=== PATIENT | female | born 1990 | race African-American/Black ===

== ENCOUNTER 2017-02-16 10:05 | Emergency (ER) | payer OTHER ==
--- NOTE | ~2017-02-16 | US61 ---
[facility] A Service of [facility] RADIOLOGY TEXT RESULTS PATIENT: ERNESTO PETERS LOCATION: [facility] : [birth year] UNIT #: [id number] AGE: [address]: Gladys Ramírez SEX: F ORDER DR: [id number] [facility] [address] [place], [place] [address] [id number] MR#: [id number] Acc #: [id number] NAME: ERNESTO PETERS : 1990 SEX: F STUDY DATE/TIME: 02/16/2017 10:53 UNIT: [facility] ROOM: STUDY DESCRIPTION: US /Mat <14Wk Attending Physician: Rizwan Frias M.D. Ordering Physician: Alexander Valente M.D. Primary Care Physician: No Primary Care Physician MEDICAL IMAGING REPORT This report is preliminary unless electronic signature is present EXAM Early ultrasound. HISTORY Early with cramping for 1 day. COMPARISON 06/25/2015 FINDINGS Transabdominal followed by transvaginal imaging was performed. Right and left ovaries are visualized and they appear normal and have normal flow and measure 3.4-4.0 cm. There is an intrauterine gestational sac. There is yolk sac and a pole and the pole is 1.79 cm with an estimated gestational age of 8 weeks and 2 days. The gestational sac appears normal. There is no evidence of bleeding. The heart rate is 168 beats per minute. The uterus otherwise appears normal. IMPRESSION 8 week 2 day intrauterine with a heart rate of 168 beats per minute. The study appears otherwise normal. Dictated by... Gumaro Parsons M.D. THIS IS AN ELECTRONICALLY VERIFIED REPORT Gumaro Parsons M.D. at 02/16/2017 4:31 PM BISI/glen TD: 02/16/2017 12:37 [facility] A Service of [facility] RADIOLOGY TEXT RESULTS PATIENT: ERNESTO PETERS LOCATION: [facility] : [birth year] UNIT #: [id number] AGE: [address]: Gladys Ramírez SEX: F ORDER DR: JOB #: [id number] MEDICAL IMAGING REPORT Page 1 of 1 COPY
[~2017-02-16 10:05] MED LIST: CLINDAMYCIN HC300 MG PO; KEFLEX500 MG PO; MACROBID 100 M100 MG PO; MACROBID100 M1 PO; NAPROXEN PO; NO MEDICATIONS; ORUDIS75 M1 DOB; PHENERGAN PO; PHENERGAN25 MG PO; PRENATA CHEWAB1 EAC1 PO; PRENATAL MULITV1 TAB PO; PRENATAL VITAM1 EAC2 PO; ZOFRAN PO
[2017-02-16 10:47] LABS: URINE SOURCE CLEAN CATCH
[2017-02-16 10:54] LABS: URINE APPEARANCE CLOUDY; URINE BILIRUBIN NEG (NEG); URINE BLOOD NEG (NEG); URINE COLOR YELLOW; URINE GLUCOSE NEG (NEG); URINE KETONE NEG (NEG); URINE LEUKOCYTE ESTERASE NEG (NEG); URINE NITRATE NEG (NEG); URINE PH 7.5 (5-8); URINE PROTEIN NEG (NEG); URINE SPECIFIC GRAVITY 1.026 (1.003-1.035)
[2017-02-16 10:55] LABS: BASOPHIL% 0.3 % (0-2.5); EOSINOPHIL# 0.2 X10e3 (0-0.7); EOSINOPHIL% 1.7 % (0.0-7.0); HEMATOCRIT 38.6 % (35.0-45.0); HEMOGLOBIN 12.5 gm/dL (12.0-16.0); LYMPHOCYTE# 2.3 X10e3 (1.0-3.5); LYMPHOCYTE% 24.5 % (17.0-45.0); MEAN CELL VOLUME 92.6 FL (83-96); MEAN CORPUSCULAR HGB CONC 32.4 g/dL (30-36); MEAN PLATELET VOLUME 7.4 FL (6.5-11.5); MONOCYTE# 0.8 X10e3 (0-1.0); MONOCYTE% 8.7 % (3.0-12.0); NEUTROPHIL# 6.2 X10e3 (1.5-7.1); NEUTROPHIL% 64.8 % (40-75); PLATELET COUNT 304 X10e3 (140-420); RED BLOOD COUNT 4.17 X10e (3.90-5.30); RED CELL DISTRIBUTION WIDTH 13.4 % (11.0-15.5); WHITE BLOOD COUNT 9.5 X10e3 (4.0-10.5)
[2017-02-16 10:59] LABS: DIFF IND NO
[2017-02-16 11:00] LABS: CULTURE INDICATED? NO
[2017-02-16 11:24] LABS: ALBUMIN SERUM 3.5 g/dL (3.5-5.0); ALKALINE PHOSPHATASE 50 U/L (32-92); ALT (SGPT) 12 U/L (10-40); AMYLASE 24 U/L (0-46); AST (SGOT) 12 U/L (10-42); BILIRUBIN,TOTAL 0.5 mg/dL (0.2-2.0); BLOOD UREA NITROGEN 10 mg/dL (9-23); BUN/CREATININE RATIO 16.66; CALCIUM SERUM 8.4 mg/dL (8.4-10.2); CARBON DIOXIDE 26 mmol/L (22-31); CHLORIDE 104 mmol/L (100-111); CREATININE SERUM 0.6 mg/dL (0.6-1.4); GLOM FILT RATE Estimated 142.8 mL/min (>60); GLUCOSE FASTING 87 mg/dL (70-110); LIPASE 16 U/L (22-51); POTASSIUM 3.4 mmol/L (3.5-5.1); PROTEIN TOTAL SERUM 6.9 g/dL (6.0-8.3); SODIUM 134 mmol/L (135-145)
[2017-02-16 11:25] LABS: BILIRUBIN, DIRECT <0.1 mg/dL (0.0-0.2); BILIRUBIN,INDIRECT 0.4 mg/dL (0.0-0.9)
[2017-02-18 08:06] LABS: CHLAMYDIA TRACH Not Detected (Not Detected); N GONOR Not Detected (Not Detected)
== END 2017-02-16 13:47 | disposition home or self-care (01) ==
LOC: CED 10:05
PROVIDERS: Physician Assistant
DX: R10.84 Generalized abdominal pain (principal); F17.210 Nicotine dependence, cigarettes, uncomplicated
CPT/HCPCS: 36415; 76801; 80048; 80076; 81003; 82150; 83690; 84702; 84703; 85025; 87210; 87491; 87591; 87808; 87905; 96361; 96374; 99284; J2405